=== PATIENT | male | born 1985 | race Caucasian/White ===

== ENCOUNTER 2017-04-23 19:50 | Emergency (ER) | payer SELFPAY ==
[~2017-04-23] VITALS: Ht 185.4 cm; Wt 154.4 kg
[2017-04-23 19:58] VITALS: Ht 185.4 cm; Wt 154.4 kg
[2017-04-23] MEDS ORDERED: ONDANSETRON 4 MG INJ IV STA (20:33)
[2017-04-23] MEDS ORDERED: SOD CHLORIDE 0.9% 1,000 ML IV STA (20:33)
[2017-04-23] MEDS ORDERED: morphine 4 MG/ML VIAL IV STA (20:33)
--- NOTE | 2017-04-23 21:38 | RADRPT ---
PROCEDURE: XR Chest. CLINICAL INDICATION: Chest pain. TECHNIQUE: Single frontal chest x-ray. COMPARISON: None. FINDINGS: The cardiomediastinal silhouette is unremarkable. There is no congestive heart failure.. No focal i nfiltrate is seen. There is no pleural effusion. There is no pneumothorax. The osseous structures are unremarkable. IMPRESSION: 1. No active disease. RPTAT: HMVK .Octavio Emanuel MD, MD Date Time Electronically viewed and signed by .Octavio Emanuel MD, MD on 04/23/2017 21:38 .K/
[2017-04-23 21:43] LABS: BASOPHIL # 0.1 10^3/ul (0.0-0.1); BASOPHILS % 0.6 % (0.0-2.0); EOSINOPHILS # 0.3 10^3/ul (0.0-0.5); EOSINOPHILS % 2.9 % (0.0-7.0); HEMATOCRIT 46.8 % (42.0-52.0); HEMOGLOBIN 16.3 g/dl (14.0-18.0); LYMPHOCYTES # 3.2 10^3/ul (0.8-2.9); LYMPHOCYTES % 32.5 % (15.0-51.0); MEAN CORPUSCULAR HEMOGLOBIN 32.1 pg (29.0-33.0); MEAN CORPUSCULAR HGB CONC 34.8 g/dl (32.0-37.0); MEAN CORPUSCULAR VOLUME 92.1 fl (82.0-101.0); MONOCYTE # 0.6 10^3/ul (0.3-0.9); MONOCYTES % 5.8 % (0.0-11.0); NEUTROPHIL # 5.7 10^3/ul (1.6-7.5); NEUTROPHILS % 57.7 % (39.0-77.0); PLATELET COUNT 234 10^3/UL (140-415); RED BLOOD COUNT 5.08 10^6/ul (4.70-6.10); RED CELL DISTRIBUTION WIDTH 13.2 % (11.5-14.5); WHITE BLOOD COUNT 9.8 10^3/ul (4.8-10.8)
[2017-04-23 21:53] LABS: INR 0.93; PROTIME 12.5 Sec (12.2-14.2)
[2017-04-23 21:54] LABS: PARTIAL THROMBOPLASTIN TIME 30.1 Sec (25.0-35.0)
[2017-04-23 21:55] LABS: ANION GAP 20 (8-16); BLOOD UREA NITROGEN 14 mg/dl (7-20); CALCIUM 9.6 mg/dl (8.4-10.2); CARBON DIOXIDE 26 mmol/L (21-31); CHLORIDE 101 mmol/L (97-110); CREATININE 0.99 mg/dl (0.61-1.24); GLUCOSE 115 mg/dl (70-220); SODIUM 143 mmol/L (135-144)
[2017-04-23 22:10] LABS: TROPONIN-I < 0.012 ng/ml (0.00-0.12)
[2017-04-23] MEDS ORDERED: SOD CHLORIDE 0.9% 100 ML ONE (22:41)
[2017-04-23] MEDS ORDERED: IOHEXOL 100 ML ONE (22:41)
--- NOTE | 2017-04-23 23:21 | RADRPT ---
PROCEDURE: CTA Chest. CLINICAL INDICATION: Chest pain, rule out pulmonary embolism. TECHNIQUE: Direct spiral axial sections were obtained from the thoracic inlet to the upper abdomen with the use of 100 cc of Omnipaque 350 nonionic intravenous contrast material. Axial MIP, coronal, and sagittal reformations were obtained. The images were reviewed on a PACS workstation. CTDIvol: 7 0.42, 19.99 mGy. DLP: 764.02 mGy-cm. One or more of the following dose reduction techniques were used: - Automated exposure control. - Adjustment of the mA and/or kV according to patient size. - Use of iterative reconstruction technique. COMPARISON: None. FINDINGS: There is no pulmonary embolism. The main pulmonary artery is normal in caliber. There is no aortic aneurysm. The heart is not enlarged. There is no pericardial effusion. There are minimal dependent atelectatic changes in the lungs. There is no pulmonary edema or consoli dation. No pleural effusion or pneumothorax is identified. No suspicious thyroid lesion is seen. There is no thoracic lymphadenopathy. The trachea and mainste m bronchi are patent. Limited evaluation of the upper abdomen is unremarkable. There is no suspicious osseous lesion. IMPRESSION: 1. No pulmonary embolism. 2. No pulmonary edema or consolidation. RPTAT: HTAR .Shalom Schroeder MD, Date Time Electronically viewed and signed by .Shalom Schroeder MD, MD on 04/23/2017 23:21 .R/
[2017-04-23] MEDS ORDERED: IBUP-1542 PO (23:42)
[2017-04-24 00:02] VITALS: BP 134/71; PULSE 89; RESP 20; TEMP 98.3
--- NOTE | 2017-04-24 00:03 | ERD ---
ER Documentation Chief Complaint Date/Time DATE: 04/24/17 TIME: 00:01 Chief Complaint mid sternal cp radiating to left shoulder/back since 11am. +sob HPI Patient is a 32-year-old male with no medical problems who presents with shortness of breath. The shortness of breath started today. He was sitting in a car when it started. He says "my lungs feel tight". The patient says that the pain is worse with movement. He has chest pain as well. He has had no treatment as of yet. He has bilateral leg swelling. He does not currently have a primary doctor. ROS All systems reviewed and are negative except as per history of present illness. 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 Neck: Full range of motion..~ No meningismus. Resp: Clear to auscultation bilaterally Cardio: Tachycardic rate without murmur Abd: Soft, non tender, non distended. Normal bowel sounds Skin: No petechiae or rashes Back: No midline or flank tenderness Ext: No cyanosis, or edema Neur: Awake and alert Psych: Normal Mood and Affect Result Diagram: 04/23/17205004/23/172050 Results 24 hrs Laboratory Tests Test 04/23/17 20:51 White Blood Count 9.810^3/ul Red Blood Count 5.0810^6/ul Hemoglobin 16.3g/dl Hematocrit 46.8% Mean Corpuscular Volume 92.1fl Mean Corpuscular Hemoglobin 32.1pg Mean Corpuscular Hemoglobin Concent 34.8g/dl Red Cell Distribution Width 13.2% Platelet Count 26653^3/UL Mean Platelet Volume 11.0fl Neutrophils % 57.7% Lymphocytes % 32.5% Monocytes % 5.8% Eosinophils % 2.9% Basophils % 0.6% Nucleated Red Blood Cells % 0.0/100WBC Neutrophils # 5.710^3/ul Lymphocytes # 3.210^3/ul Monocytes # 0.610^3/ul Eosinophils # 0.310^3/ul Basophils # 0.110^3/ul Nucleated Red Blood Cells # 0.010^3/ul Prothrombin Time 12.5Sec Prothrombin Time Ratio 1.0 INR International Normalized Ratio 0.93 Activated Partial Thromboplast Time 30.1Sec Sodium Level 143mmol/L Potassium Level 4.0mmol/L Chloride Level 101mmol/L Carbon Dioxide Level 26mmol/L Anion Gap 20 Blood Urea Nitrogen 14mg/dl Creatinine 0.99mg/dl Glucose Level 115mg/dl Calcium Level 9.6mg/dl Troponin I < 0.012ng/ml Current Medications Medications (Trade) Dose Ordered Sig/Franny Route PRN Reason Start Time Stop Time Status Last Admin Dose Admin Sodium Chloride (NS) 1,000 ml @ 1,000 mls/hr Q1H STAT IV 04/23/17 20:33 04/23/17 21:32 DC 04/23/17 20:52 Morphine Sulfate (morphine) 4 mg ONCE STAT IV 04/23/17 20:33 04/23/17 20:34 DC 04/23/17 20:58 Ondansetron HCl (Zofran Inj) 4 mg ONCE STAT IV 04/23/17 20:33 04/23/17 20:34 DC 04/23/17 20:57 IV Flush 10 ml 10 ml STK-MED ONCE .ROUTE 04/23/17 22:41 04/23/17 22:42 DC Sodium Chloride 100 ml @ ud STK-MED ONCE .ROUTE 04/23/17 22:41 04/23/17 22:42 DC Iohexol (Omnipaque) 100 ml @ ud STK-MED ONCE .ROUTE 04/23/17 22:41 04/23/17 22:42 DC Procedures/MDM EKG read by me: Rate/Rhythm: Sinus tachycardia Intervals: Normal Impression: Sinus tachycardia without ischemia Smoking Cessation Therapy: Pt. was lectured for greater than 3 minutes on the health risks of continued smoking and the benefits of cessation. Patient is a 32-year-old male with no medical problems who presents with shortness of breath and chest pain. The patient had laboratory studies which were normal. EKG shows no signs of acute ischemia. Chest x-ray was negative. CT scan shows no pulmonary embolism or aortic dissection. At this point I doubt acute coronary syndrome, pneumonia, pneumothorax, pulmonary embolism, or aortic dissection. I believe outpatient management is appropriate at this time. The patient was to follow-up closely with the primary doctor within 24- 48 hours. The patient can return if symptoms worsen. Departure Diagnosis: Primary Impression: Chest pain Chest pain type: unspecified Qualified Code: R07.9 - Chest pain, unspecified type Condition: Fair Patient Instructions: Chest Pain, Uncertain Cause Referrals: [facility] YOU HAVE RECEIVED A MEDICAL SCREENING EXAM AND THE RESULTS INDICATE THAT YOU DO NOT HAVE A CONDITION THAT REQUIRES URGENT TREATMENT IN THE EMERGENCY DEPARTMENT. FURTHER EVALUATION AND TREATMENT OF YOUR CONDITION CAN WAIT UNTIL YOU ARE SEEN IN YOUR DOCTORS OFFICE WITHIN THE NEXT 1-2 DAYS. IT IS YOUR RESPONSIBILITY TO MAKE AN APPOINTMENT FOR FOLOW-UP CARE. IF YOU HAVE A PRIMARY DOCTOR --you should call your primary doctor and schedule an appointment IF YOU DO NOT HAVE A PRIMARY DOCTOR YOU CAN CALL OUR PHYSICIAN REFERRAL HOTLINE AT IF YOU CAN NOT AFFORD TO SEE A PHYSICIAN YOU CAN CHOSE FROM THE FOLLOWING [facility] [address] [facility] [address] [facility] [address] [facility] [address] [facility]. [facility] [address] [facility]. [facility]. [address] Additional Instructions: Call your primary care doctor TOMORROW for an appointment during the next 1-2 days.See the doctor sooner or return here if your condition worsens before your appointment time. MAY CHAN MD Apr 24, 2017 00:03
== END 2017-04-24 00:04 | disposition home or self-care (01) ==
LOC: E/R 19:50
DX: R07.2 Precordial pain (principal); R40.2252 Coma scale, best verbal response, oriented, at arrival to emergency department; F17.210 Nicotine dependence, cigarettes, uncomplicated; R40.2142 Coma scale, eyes open, spontaneous, at arrival to emergency department; R40.2362 Coma scale, best motor response, obeys commands, at arrival to emergency department; R06.02 Shortness of breath
CPT/HCPCS: 36415; 71010; 71275; 80048; 84484; 85025; 85610; 85730; 93005; 96374; 96375; 99285; J2270; J2405; J7030; Q9967